=== PATIENT | female | born 1950 | race Two or more races ===

== ENCOUNTER 2017-02-16 16:32 | Emergency (ER) | payer MEDICARE, MEDICAID ==
[~2017-02-16] VITALS: Ht 152.4 cm; Wt 72.6 kg
[2017-02-16] MEDS ORDERED: NKM (16:54)
[2017-02-16 17:06] VITALS: BP 177/85
[2017-02-16] MEDS ORDERED: Ketorolac 60mg Inj IM ONE (17:45)
[2017-02-16 17:48] LABS: APPEARANCE,URINE SLIGHTLY CLOUDY; KETONES,URINE NEGATIVE (NEGATIVE); LEUKOCYTE ESTERASE ,URINE 1+ (NEGATIVE); NITRITE,URINE NEGATIVE (NEGATIVE); PH,URINE 6 (4.5-8.0); PROTEIN,URINE 1+ (NEGATIVE); UROBILINOGEN,URINE NORMAL MG/DL (0.0-1.0)
--- NOTE | 2017-02-16 17:52 | Emergency Room Report ---
History of Present Illness General Chief Complaint: Lower Back Pain or Injury Source: Patient Present Illness HPI 66 YO Female presents to the ED c/o Left -sided low back pain that shoots down the leg x 2 days. Patient denies trauma or fall she reports previous episodes of similar symptoms in previous years. 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 Patient denies trauma or fall. Patient denies dysuria or hematuria however she does state she has frequency with urination. Patient denies fevers or chills. She states her pain is exacerbated upon raising her left leg or bending forward. Patient denies numbness or tingling to the extremities. Patient states her pain is localized to the left side of her lower back and radiates down into the left posterior thigh. Patient denies bruising, erythema, increased temperature palpation. Patient denies recent spinal procedures, history of cancer, night sweats or significant changes in weight. Patient denies abdominal pain or rashes. Denies numbness tingling or loss of sensation or gross motor movements of the extremities, incontinence of bowel or bladder. Denies CP, Palpitations, LOC, AMS, dizziness, Changes in Vision, Sensation, paresthesias, or a sudden severe headache. Allergies: Uncoded Allergies: PAIN SHOT, DOES NOT REMEMBER NAME. (Allergy, Unknown, 02/16/17) Patient History Past Medical History: see triage record Past Surgical History: none Pertinent Family History: none Now: No Immunizations: UTD Reviewed Nursing Documentation: PMH: Agreed, PSxH: Agreed Nursing Documentation-PMH Past Medical History: No Stated History Review of Systems All Other Systems: negative except mentioned in HPI Physical Exam Vital Signs Date Time Temp Pulse Resp B/P Pulse Ox O2 Delivery O2 Flow Rate FiO2 02/16/17 16:46 98.4 68 16 177/85 98 Room Air Sp02 EP Interpretation: reviewed, normal General Appearance: no apparent distress, alert, GCS 15, non-toxic Head: normocephalic, atraumatic Eyes: bilateral eye PERRL, bilateral eye normal inspection ENT: hearing grossly normal, normal pharynx, no angioedema, normal voice Neck: full range of motion, supple/symm/no masses Respiratory: lungs clear, normal breath sounds, speaking full sentences Cardiovascular #1: regular rate, rhythm, no edema Gastrointestinal: normal bowel sounds, non tender, soft, no guarding, no rebound Rectal: deferred Genitourinary: normal inspection, no CVA tenderness Musculoskeletal: back normal, gait/station normal, normal range of motion, no calf tenderness, tender - mild left sided paraspinal tenderness to the lumbar region and upper glute. Neurologic: alert, oriented x3, responsive, motor strength/tone normal, sensory intact, cerebellar normal, normal gait, speech normal Psychiatric: judgement/insight normal, memory normal, mood/affect normal, no suicidal/homicidal ideation Skin: normal color, no rash, warm/dry, well hydrated Medical Decision Making PA Attestation Dr West is my supervising Physician whom patient management has been discussed with. Diagnostic Impression: Primary Impression: Sciatica neuralgia Qualified Codes: M54.32 - Sciatica, left side Additional Impression: UTI (urinary tract infection) Qualified Codes: N30.01 - Acute cystitis with hematuria ER Course Pt. presents to the ED c/o Left -sided low back pain that shoots down the leg x 2 day(s). Ddx considered but are not limited to Fracture, dislocation, contusion, epidural abscess, Sprain/Strain/Spasm, Kidney stone, hernia just to name a few. Vital signs: are WNL, pt. is afebrile H&PE are most consistent with sciatica - Pain exacerbated upon left leg straight leg raise, negative for pain with right leg straight leg raise. DTR's symmetrical, motor strength is equal bilaterally. ORDERS: -X-ray not required at this time, no spinous process tenderness, I do not suspect spinal chord injury at this time, no cauda equina or incontinence. - UA : moderate bacteria, elevated WBC's leukocytes and some rbc's- in correlation to PE, and lack of fevers or CVA tenderness I do not suspect pyelo or stone, most consistent with acute cystitis. ED INTERVENTIONS: - IM Toradol 30mg. -Soma PO Re-Evaluation: pt. states her pain has subsided with ED interventions d/w pt. to return promptly to ED with worsening or new symptoms DISCHARGE: At this time pt. is stable for d/c to home. Will provide printed patient care instructions, and any necessary prescriptions. Care plan and follow up instructions have been discussed with the patient prior to discharge. Labs Test 02/16/17 17:40 Urine Color Pale yellow Urine Appearance Slightly cloudy Urine pH 6 (4.5-8.0) Urine Specific [place] 1.020 (1.005-1.035) Urine Protein 1+ (NEGATIVE) Urine Glucose (UA) Negative (NEGATIVE) Urine Ketones Negative (NEGATIVE) Urine Occult Blood 1+ (NEGATIVE) Urine Nitrite Negative (NEGATIVE) Urine Bilirubin Negative (NEGATIVE) Urine Urobilinogen Normal MG/DL (0.0-1.0) Urine Leukocyte Esterase 1+ (NEGATIVE) Urine RBC 2-4 /HPF (0 - 2) Urine WBC 5-10 /HPF (0 - 2) Urine Squamous Epithelial Cells Many /LPF (NONE/OCC) Urine Bacteria Moderate /HPF (NONE) Last Vital Signs Date Time Temp Pulse Resp B/P Pulse Ox O2 Delivery O2 Flow Rate FiO2 02/16/17 17:06 98.4 16 177/85 98 Room Air 02/16/17 16:46 68 Disposition: HOME, SELF-CARE Condition: Stable Scripts Ibuprofen* (MOTRIN*) 400 Mg Tablet 400 MG ORAL THREE TIMES A DAY, #20 TAB 0 Refills Prov: Lisha Beck 02/16/17 Cyclobenzaprine Hcl* (FLEXERIL*) 10 Mg Tablet 10 MG ORAL THREE TIMES A DAY for 7 Days, #21 TAB Prov: Lisha Beck 02/16/17 Nitrofurantoin Monohyd/M-Cryst* (MACROBID 100 MG*) 100 Mg Capsule 100 MG ORAL EVERY 12 HOURS for 5 Days, #10 CAP Prov: Lisha Beck 02/16/17 Patient Instructions: Lumbosacral Strain, Sciatica, [id number], Urinary Tract Infection, [id number] Additional Instructions: Take medications as directed. Follow up with a Primary Care Provider in 3-5 days, even if your symptoms have resolved. --Please review list of primary care clinics, if you do not already have a primary care provider Return sooner to ED if new symptoms occur, or current symptoms become worse. Do not drink alcohol, drive, or operate heavy machinery while taking Flexeril as this may cause drowsiness. - Please note that this Emergency Department Report was dictated using [employer] worker technology software, occasionally this can lead to erroneous entry secondary to interpretation by the dictation equipment. Lisha Beck Feb 16, 2017 17:52
[2017-02-16 18:00] LABS: BACTERIA,URINE MODERATE /HPF; SQUAMOUS EPITHELIAL CELL,UR MANY /LPF (NONE/OCC)
[2017-02-16] MEDS ORDERED: IBUPROFEN400 MG ORAL (18:12)
[2017-02-16] MEDS ORDERED: NITROFURANTOIN100 M2 ORAL (18:12)
[2017-02-16] MEDS ORDERED: CYCLOBENZAPRINE10 MG ORAL (18:12)
[2017-02-16 18:31] VITALS: BP 146/79
== END 2017-02-16 18:33 | disposition home or self-care (01) ==
LOC: EMR 18:02
DX: M54.32 Sciatica, left side (principal); N30.01 Acute cystitis with hematuria
CPT/HCPCS: 81003; 87086; 96372; 99284